=== PATIENT | male | born 1995 | race Caucasian/White ===

== ENCOUNTER 2017-01-02 21:07 | Emergency (ER) | payer OTHER ==
[~2017-01-02] VITALS: Ht 185.4 cm; Wt 74.3 kg
[~2017-01-02 21:07] MED LIST: NO HOME MEDS
[2017-01-02 21:12] VITALS: TEMP 98.8; Ht 185.4 cm; Wt 74.3 kg
--- NOTE | 2017-01-02 21:21 | ERPDOC ---
Departure Disposition Decision Date: Jan 02, 2017 Disposition Decision Time: 21:36 Disposition: 01 DISCHARGED HOME, SELF-CARE Impression Impression Impression: Primary Impression: History of foreign body ingestion Severity: Mild Condition: Improved Seen By: Physician only Referrals: MITCH COYLE MD (PCP) Patient Instructions: Foreign Body Ingestion (ED) Problems/Meds/Labs Reviewed?: Yes Medications reviewed and manag: Yes Additional Instructions: Safe practice to keep metallic foreign bodies out of your mouth Routine diet, exercise, and work Follow up care ordered?: Yes Mental Status: Alert HPI - General Medical General Stated Complaint: SWALLOWED A RAZOR BLADE Time Seen by Provider: 21:12 Source: patient Exam Limitations: no limitations HPI - General Medical Initial Comments Pt was working at [facility] [employer] 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 Patient had his hands full, so he picked it up placed between his teeth, and began pushing a large cart that he was pushing, when the cart stopped, it bumped into his chest, and he inhaled sharply, accidentally swallowing the razor blade. Patient has no pain, but was obviously concerned since he swallowed a blade. Occurred At: home Onset: Rapid Duration: 1-3 hrs Hx of Similar Symptoms: No Allergies: Coded Allergies: No Known Allergies (Verified , 01/02/17) Past History Past Medical History Pt denies signifigant [facility] Surgical History Denies Surgeries Vaccines Hx Tetanus, Diptheria, Pertuss: No (UP TO DATE PER AGE) Social History Smoking Status: Never smoker Does patient use chewing tobac: No Second Hand Exposure: No Substance Use Type: does not use Alcohol Intake: none Record Review Pertinent history updated: Yes Review of Systems Constitutional Constitutional: DENIES: appetite decrease, appetite increase, chills, dizziness , fever, weakness ENMT Ears: DENIES: pain Hearing: DENIES: hearing loss, tinnitus Balance: DENIES: vertigo Mouth/Throat: DENIES: change in swallowing, change in voice, hoarsness, painful swallowing, sore throat Cardiovascular Cardiac: DENIES: chest pain, dyspnea on exertion Rhythm/Rate: DENIES: irregular beat, palpitations, tachycardia Vascular: DENIES: pedal edema Pulmonary Respiratory: DENIES: cough, dyspnea, pleuritic chest pain GI Upper Abdomen: DENIES: dysphagia, heartburn/indigestion, nausea, pain, vomiting Lower Abdomen: DENIES: blood in stool, constipation, diarrhea, pain General: DENIES: burning, dysuria, frequency, pain, urgency Musculoskeletal General: DENIES: cramps, joint pain, joint swelling, pain, weakness Integumentary Skin: DENIES: rash, sores Neurological General: DENIES: headache, numbness, tingling, vertigo, weakness Psychiatric Psychiatric: DENIES: anxiety, depression, nervousness Physical Exam General General Nourishment: well nourished, well developed, appears stated age, no acute distress, thin General Body Habitus: well groomed Vitals and Pain Weight: Kilograms: Height (feet): Height (inches): Triage Pain Scale: RN VS reviewed by Provider: Yes Normal Exams: Head: Normocephalic w/o trauma Eyes: Pupils are PERRLA w/ EOMI, No scleral icterus, irritation, or foreign bodies noted ENMT: No facial trauma, nasal exudates, pharyngeal erythema, or exudates are noted Neck: Full range of motion, without adenopathy, JVD, bruits or thyromegaly Chest/Resp: Clear all raman, with good airflow, and symmetry bilaterally CV: Regular rate and rhythm, without murmur or gallop, Pulses 2+ all extremities, capillary refill, <2 seconds all ext., no pedal edema noted Abdomen: Bowel sounds positive, soft, non-tender, non-distended, no hepatosplenomegaly, masses or bruits noted Lymphatic: No lymphadenopathy, or lymphedema noted Musculoskeletal: No tenderness, or deformity noted, good range of motion, all extremities Integumentary: No rashes, hives, or bruising noted, hair and nails, without abnormality Neurologic: Patient is alert, and oriented, cranial nerves, motor/sensory/ cerebellar, exams w/o gross deficits, to observation Psychiatric: Patient exhibits, appropriate attention, emotion and affect Progress Results/Orders Orders Procedure Category Date Status Time Abdomen Acute (Inc. RAD 01/02/17 Logged Chest) Progress Progress KUB/chest - normal, no metallic foreign body is seen JOSE ANGEL FLYNN MD Jan 02, 2017 21:21
[2017-01-02 21:53] VITALS: BP 134/68; PULSE 60; RESP 16; O2SAT 98
--- NOTE | 2017-01-03 08:16 | DI ---
Indication: ITS.REASON: SWALLOWED A HOUSEPERSON BLADE Procedure: ABDOMEN ACUTE (INC. CHEST): Encounter: Initial Comparison: None Technique: A PA view of the chest as well as upright and supine AP abdominal radiographs were obtained. Findings: Lungs and airways: Normal lung volumes. No focal airspace consolidation. Normal pulmonary vasculature. Pleura: No pleural effusion or pneumothorax. Heart and mediastinum: The cardiomediastinal silhouette and great vessels are within normal limits. Abdomen: Nonobstructive bowel gas pattern. No intraperitoneal free air. No radiopaque foreign body identified. Osseous structures and soft tissues: No acute osseous abnormality is seen. Impression: 1. No radiopaque foreign body identified. 2. Nonobstructive bowel gas pattern. 3. No acute cardiopulmonary process. .
== END 2017-01-02 21:53 | disposition home or self-care (01) ==
LOC: ED 21:07
DX: T18.9XXA Foreign body of alimentary tract, part unspecified, initial encounter (principal); X58.XXXA Exposure to other specified factors, initial encounter; Y93.89 Activity, other specified; Y92.512 Supermarket, store or market as the place of occurrence of the external cause; Y99.0 Civilian activity done for income or pay